=== PATIENT | male | born 1965 | race Caucasian/White ===

== ENCOUNTER 2021-03-13 04:47 | Outpatient (CLI) | payer MEDICARE, MEDICAID, SELFPAY ==
[2021-03-13 13:18] LABS: Abs Immature Grans 0.15 10^3/uL (0.0-0.06); Absolute Eosinophil Count 0.73 10^3/uL (0.0-0.7); Absolute Lymphocyte Count 2.31 10^3/uL (1.2-3.4); Basophils % 0.5; Eosinophils % 5.6; HCT 42.5 % (40.0-50.0); HGB 14.2 g/dL (13.5-17.5); Immature Grans % 1.1; Lymphocytes % 17.7; MCH 30.7 pg (27.0-33.0); MCHC 33.4 % (32.0-36.0); MCV 91.8 fL (80-95); MPV 9.4 fL (8.0-11.0); Monocytes % 11.5; Neutrophils % 63.6; Nucleated RBC 0 %; Platelet Count 379 10^3/uL (130-400); RBC 4.63 10^6/uL (4.36-5.78); RDW 13.2 % (11.8-14.1); RDW-SD 44.7 fL; WBC 13.07 10^3/uL (4.4-10.8)
[2021-03-13 13:20] LABS: Absolute Basophil Count 0.07 10^3/uL (0.0-0.2); Absolute Neutrophil Count 8.31 10^3/uL (1.2-6.7)
[2021-03-13 13:29] LABS: ALT 65 U/L (16-63); AST 33 U/L (15-37); Albumin 1.9 g/dL (3.4-5.0); Alkaline Phosphatase 101 U/L (46-116); Anion Gap 7.7 mmol/L (3-11); BUN 9 mg/dL (7-18); Bilirubin, Total 0.3 mg/dL (0.2-1.0); CO2 26.3 mmol/L (21.0-32.0); CREATININE 0.7 mg/dL (0.70-1.30); Calcium 8.7 mg/dL (8.5-10.1); Chloride 105 mmol/L (98-107); Glucose 97 mg/dL (74-106); Sodium 139 mmol/L (136-145); Total Protein 7.2 g/dL (6.4-8.2)
== END 2021-03-13 04:48 | disposition home or self-care (01) ==
LOC: LBO 04:47
PROVIDERS: PCP Family Medicine; Visit Provider Internal Medicine Medical Oncology
DX: C34.31 Malignant neoplasm of lower lobe, right bronchus or lung (principal)
CPT/HCPCS: 36415; 80053; 85025

== ENCOUNTER 2021-04-12 02:52 | Outpatient (CLI) | payer MEDICARE, MEDICAID, SELFPAY ==
[2021-04-12 08:58] LABS: Abs Immature Grans 0.07 10^3/uL (0.0-0.06); Absolute Basophil Count 0.11 10^3/uL (0.0-0.2); Absolute Eosinophil Count 1.04 10^3/uL (0.0-0.7); Absolute Lymphocyte Count 2.54 10^3/uL (1.2-3.4); Absolute Monocyte Count 1.11 10^3/uL (0.1-0.8); Absolute Neutrophil Count 6.27 10^3/uL (1.2-6.7); Eosinophils % 9.3; HCT 42.8 % (40.0-50.0); HGB 14.1 g/dL (13.5-17.5); Immature Grans % 0.6; Lymphocytes % 22.8; MCH 30.3 pg (27.0-33.0); MCHC 32.9 % (32.0-36.0); MPV 9.6 fL (8.0-11.0); Neutrophils % 56.3; Nucleated RBC 0 %; Platelet Count 314 10^3/uL (130-400); RBC 4.65 10^6/uL (4.36-5.78); RDW 15.2 % (11.8-14.1); WBC 11.14 10^3/uL (4.4-10.8)
[2021-04-12 09:01] LABS: Bilirubin Negative (Negative); Blood Trace-intact (Negative); Clarity Clear (Clear); Glucose Negative (Negative); Ketones Negative (Negative); Leukocyte Esterase Negative (Negative); Nitrite Negative (Negative); Specific Gravity 1.025 (1.005-1.025); Urobilinogen 0.2 EU/dL (Up TO 0.2); pH 6.5 (5-8)
[2021-04-12 09:11] LABS: Bacteria Few HPF (Negative); Crystals Negative HPF (Negative); Epithelial Cells Negative HPF (Negative); Mucus Moderate (Negative)
[2021-04-12 09:12] LABS: C & S Indicated? Yes
[2021-04-12 09:14] LABS: ALT 36 U/L (16-63); AST 22 U/L (15-37); Albumin 2.4 g/dL (3.4-5.0); Alkaline Phosphatase 75 U/L (46-116); Anion Gap 8.7 mmol/L (3-11); BUN 9 mg/dL (7-18); Bilirubin, Total 0.3 mg/dL (0.2-1.0); CO2 26.3 mmol/L (21.0-32.0); CREATININE 0.8 mg/dL (0.70-1.30); Calcium 8.7 mg/dL (8.5-10.1); Chloride 107 mmol/L (98-107); Glucose 92 mg/dL (74-106); Potassium 4.2 mmol/L (3.5-5.1); Sodium 142 mmol/L (136-145)
[2021-04-12 09:48] LABS: Magnesium 1.8 mg/dL (1.8-2.4)
[2021-04-12 10:19] LABS: COMMENT (LAB VIEW ONLY) 97.13 mg/dL; Prot/Crea Ur Ratio 5.49
== END 2021-04-12 02:53 | disposition home or self-care (01) ==
PROVIDERS: PCP Family Medicine; Visit Provider Internal Medicine Medical Oncology
DX: C34.31 Malignant neoplasm of lower lobe, right bronchus or lung (principal); E88.09 Other disorders of plasma-protein metabolism, not elsewhere classified; R82.998 Other abnormal findings in urine
CPT/HCPCS: 36415; 80053; 81003; 81015; 82565; 83735; 84156; 85025; 87086

== ENCOUNTER 2021-05-01 02:07 | Outpatient (CLI) | payer MEDICARE, MEDICAID, SELFPAY ==
[2021-05-01 09:21] LABS: Abs Immature Grans 0.08 10^3/uL (0.0-0.06); Absolute Basophil Count 0.09 10^3/uL (0.0-0.2); Absolute Eosinophil Count 0.07 10^3/uL (0.0-0.7); Absolute Lymphocyte Count 2.59 10^3/uL (1.2-3.4); Absolute Monocyte Count 0.86 10^3/uL (0.1-0.8); Absolute Neutrophil Count 3.69 10^3/uL (1.2-6.7); Basophils % 1.2; Eosinophils % 0.9; HCT 43.2 % (40.0-50.0); HGB 14.3 g/dL (13.5-17.5); Immature Grans % 1.1; Lymphocytes % 35.1; MCH 30.5 pg (27.0-33.0); MCHC 33.1 % (32.0-36.0); MCV 92.1 fL (80-95); Monocytes % 11.7; Nucleated RBC 0 %; Platelet Count 304 10^3/uL (130-400); RBC 4.69 10^6/uL (4.36-5.78); RDW 16.7 % (11.8-14.1); RDW-SD 55.6 fL; WBC 7.38 10^3/uL (4.4-10.8)
[2021-05-01 09:37] LABS: ALT 56 U/L (16-63); AST 37 U/L (15-37); Albumin 2.5 g/dL (3.4-5.0); Alkaline Phosphatase 79 U/L (46-116); Anion Gap 8.6 mmol/L (3-11); BUN 8 mg/dL (7-18); Bilirubin, Total 0.3 mg/dL (0.2-1.0); CO2 26.4 mmol/L (21.0-32.0); CREATININE 0.6 mg/dL (0.70-1.30); Calcium 8.3 mg/dL (8.5-10.1); Chloride 107 mmol/L (98-107); Glucose 89 mg/dL (74-106); Potassium 3.8 mmol/L (3.5-5.1); Sodium 142 mmol/L (136-145); Total Protein 6.6 g/dL (6.4-8.2)
== END 2021-05-01 02:08 | disposition home or self-care (01) ==
LOC: LBO 02:07
PROVIDERS: PCP Family Medicine; Visit Provider Internal Medicine Medical Oncology
DX: C34.31 Malignant neoplasm of lower lobe, right bronchus or lung (principal)
CPT/HCPCS: 36415; 80053; 85025